=== PATIENT | male | born 1965 | race Caucasian/White ===

== ENCOUNTER → 2017-11-17 | Outpatient (CLI) | payer BC | LOC: FIMAGING 16:53 | PROVIDERS: ATTEND Dentist Periodontics | DX: R93.3 Abnormal findings on diagnostic imaging of other parts of digestive tract (principal) ==

== ENCOUNTER → 2017-11-28 | Outpatient (CLI) | payer BC | LOC: FIMAGING 16:32 | PROVIDERS: ATTEND Dentist Periodontics | DX: T18.4XXA Foreign body in colon, initial encounter (principal) ==

== ENCOUNTER → 2017-12-21 | Outpatient (CLI) | payer BC | LOC: FLAB 17:52 | PROVIDERS: ATTEND Dentist Periodontics | DX: Z13.811 Encounter for screening for lower gastrointestinal disorder (principal) ==